=== PATIENT | female | born 1990 | race Caucasian/White ===

== ENCOUNTER → 2020-10-13 | Day surgery (SDC) | payer OTHER ==
[~2020-10-13] MED LIST: Bacitracin Oint 1 GM U/D Packet ONE; Bupivacaine 0.5% 50 ML MDV ONE; Lidocaine 1% with EPINEPHrine 1:100,000 50 ML MDV ONE; Midazolam 1 MG/ML 2 ML SDV ONE; Propofol 200 MG/20 ML SDV ONE; Sodium Chloride 0.9% 1,000 ML IV SCH; ceFAZolin 2 GM in Sodium Chloride 0.9% 50 ML IV ONE; fentaNYL 100 MCG/2 ML SDV ONE
[2020-10-13 09:20] VITALS: BP 113/68; PULSE 65
--- NOTE | 2020-10-13 10:47 | OR ---
DATE OF PROCEDURE: 10/13/2020 SURGEON: Srini Catalan MD PROCEDURE: Excision of scalp lesions x7 with the following pathological locations, anterior scalp lesion, right anterior scalp lesion, scalp midline lesion, posterior lateral scalp lesion, posterior midline scalp lesion, right posterior scalp lesion, left scalp lesion. COMPLICATIONS: None. TECHNICAL SERVICE REPRESENTATIVE: None. ANESTHETIC: MAC/local. PREOPERATIVE DIAGNOSIS: Multiple scalp lesions. POSTOPERATIVE DIAGNOSIS: Multiple scalp lesions. RISKS: Risks, benefits, alternatives, and limitations including, but not limited to infection, bleeding, perforation, false positives, and false negatives were explained to the patient who wished to proceed. PROCEDURE IN DETAIL: The patient was placed in supine position. The scalp was prepped and draped in a standard fashion. Each of the lesions were less than 1 cm. All of them were consistent with cyst-type lesions. All of these were excised with the overlying skin full-thickness down to the fat layer. All of them were less than 1 cm in length with respect to size and the width was less than 5 mm. All of these were irrigated and then closed with cecil. Electrocautery was not used. Lidocaine with epinephrine mixed with Marcaine was used to anesthetize all of these prior to removal. The patient tolerated the procedure well. Srini Catalan MD /[id number]
== END ==
LOC: JP.SDS 06:29
PROVIDERS: ATTEND Surgery
DX: L72.12 Trichodermal cyst (principal); Z87.891 Personal history of nicotine dependence; Z88.2 Allergy status to sulfonamides; Z91.018 Allergy to other foods; E66.9 Obesity, unspecified; Z68.34 Body mass index [BMI] 34.0-34.9, adult; Z88.8 Allergy status to other drugs, medicaments and biological substances
CPT/HCPCS: 81025; J0690; J2250; J2704; J3010; J3490; J7030

== ENCOUNTER 2024-10-28 06:51 | Day surgery (SDC) | payer MEDICAID ==
[2024-10-28] MEDS ORDERED: Glycopyrrolate 0.2 MG/ML 5 ML MDV ONE (07:02)
[2024-10-28] MEDS ORDERED: Dexamethasone 4 MG/ML SDV ONE (07:02)
[2024-10-28] MEDS ORDERED: Succinylcholine 200 MG/10 ML MDV ONE (07:02)
[2024-10-28] MEDS ORDERED: Neostigmine Methylsulfate 10 MG/10 ML MDV ONE (07:02)
[2024-10-28] MEDS ORDERED: Propofol 200 MG/20 ML SDV ONE (07:02)
[2024-10-28] MEDS ORDERED: Ondansetron 4 MG/2 ML SDV ONE (07:02)
[2024-10-28] MEDS ORDERED: Rocuronium 50 MG/5 ML Vial ONE (07:02)
[2024-10-28] MEDS ORDERED: fentaNYL 250 MCG/5 ML SDV ONE ×2 (07:04→08:44)
[2024-10-28 07:16] LABS: MEAN CORPUSCULAR HEMOGLOBIN 30.2 pg (31.6-35.5); MEAN CORPUSCULAR HGB CONC 34.2 g/dL (31.6-35.5); MEAN CORPUSCULAR VOLUME 88.2 fL (81.4-99.0); RED BLOOD CELL COUNT 4.31 M/uL (3.77-5.24); WHITE BLOOD CELL COUNT,WBC 10.1 K/uL (3.2-11.0)
[2024-10-28 07:32] LABS: ANION GAP 9.9 mmol/L (5.0-14.0); CALCIUM 9.1 mg/dL (8.5-10.1); CREATININE 0.7 mg/dL (0.6-1.0); EST CRCL DRUG DOSING (CG) 110.12 mL/min; POTASSIUM,K 4.2 mmol/L (3.6-5.2)
[2024-10-28] MEDS: Nozin Nasal Sanitizer NASBOTH ONE (07:38)
[2024-10-28] MEDS: Scopalamine 1mg/3day Transdermal Patch TOP ONE (07:41)
[2024-10-28] MEDS: Lactated Ringers 1,000 ML IV SCH (07:42)
[2024-10-28] MEDS: ceFAZolin 2 GM in Premix Bag 1 BAG IV ONE (08:35)
[2024-10-28] MEDS: Bupivacaine 0.5% 50 ML MDV ONE (09:16)
[2024-10-28 11:49] VITALS: BP 122/88; PULSE 54
== END 2024-10-28 12:00 | disposition home or self-care (01) ==
LOC: JP.SDS 06:51
PROVIDERS: ATTEND Specialist
DX: S73.191A Other sprain of right hip, initial encounter (principal); M94.251 Chondromalacia, right hip
CPT/HCPCS: 01202-QZ; 36415; 76000; 80048; 85027; A9270-GY; C1769; J0330; J0665; J0690; J1100; J1596; J2405; J2704; J2710; J3010; J3490; J7120